=== PATIENT | male | born 1955 | race Two or more races ===

== ENCOUNTER 2019-01-05 05:40 | Day surgery (SDC) | payer OTHER ==
[~2019-01-05 05:40] MED LIST: ATIVAN0.5 MG; CELEXA20 MG; SINEMET 25-1001 EACH; TOPROL XL25 MG
== END 2019-01-05 14:50 | disposition home or self-care (01) ==
LOC: CIR.AMB 05:40
DX: N43.2 Other hydrocele (principal)